=== PATIENT | male | born 1965 | race Caucasian/White ===

== ENCOUNTER 2018-06-21 16:47 | Emergency (ER) | payer OTHER ==
[~2018-06-21] VITALS: Ht 185.4 cm; Wt 99.8 kg
[2018-06-21 17:29] LABS: ABSOLUTE BASOPHILS 0.1 thou/uL (0.0-0.2); ABSOLUTE EOSINOPHILS 0.1 thou/uL (0.0-0.7); ABSOLUTE LYMPHOCYTES 2.2 thou/uL (0.8-5.3); ABSOLUTE MONOCYTES 0.9 thou/uL (0.0-1.2); BASOPHILS 0.9 %; EOSINOPHILS 0.8 %; HEMATOCRIT 42.6 % (42.0-52.0); HEMOGLOBIN 14.5 gm/dL (14.0-18.0); LYMPHOCYTES 19.3 %; MCH 30.2 pg (26.0-34.0); MCV 88.8 fL (80.0-100.0); MONOCYTES 8.4 %; MPV 8.1 fl. (7.2-11.1); NUCLEATED RBCS 0 /100WBC; PLATELET COUNT* 274 thou/uL (150-400); POLYS 70.6 %; RDW-CV 13.4 % (10.5-14.5); WBC 11.3 thou/uL (4.0-11.0)
[2018-06-21 17:42] LABS: APTT 27.4 Seconds (25.0-31.3); PROTIME 9.9 Seconds (9.20-11.50)
[2018-06-21 17:49] LABS: ANION GAP 6 mmol/L (7-16); BUN 14 mg/dL (7-18); CALCIUM 9.1 mg/dL (8.5-10.1); CHLORIDE 102 mmol/L (98-107); CO2 29 mmol/L (21-32); CREATININE 1.1 mg/dL (0.6-1.3); GLUCOSE 103 mg/dL (70-99); POTASSIUM 3.8 mmol/L (3.5-5.1); SODIUM 137 mmol/L (136-145)
[2018-06-21 17:53] LABS: ALKALINE PHOSPHATASE 90 U/L (46-116); LIPASE 155 U/L (73-393); SGOT 16 U/L (15-37); SGPT 28 U/L (30-65); TOTAL BILIRUBIN 0.4 mg/dL (<0.1-1.0); TROPONIN-I LEVEL <0.06 ng/mL (<0.06)
[2018-06-21] MEDS ORDERED: VENTOLIN HFA 1818 GM INH (19:05)
[2018-06-21 19:20] VITALS: BP 133/71
--- NOTE | 2018-06-22 10:28 | EKG ---
[place] [id number] ELECTROCARDIOGRAM REPORT Name: KITTY ERICKSON [id number] Admission: 06/21/18 Attend Phys: Discharge: 06/21/18 Date of : 69 Report #: [id number] THIS REPORT FOR: //name// [facility] ED Test Date: 2018-06-21 Test Time: 17:06:49 Pat Name: KITTY ERICKSON Department: Room: Gender: Manager Express: DONAL : 1965 Requested By: Dang Orozco Order Number: [id number] MD: Gino Avilez Measurements Intervals [place] Rate: 65 P: 43 [place]: 152 QRS: -12 QRSD: 101 T: 2 QT: 384 QTc: 400 Interpretive Statements 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
== END 2018-06-21 19:21 | disposition home or self-care (01) ==
LOC: M.ERS 16:47
PROVIDERS: Nurse Practitioner Family
DX: J98.11 Atelectasis (principal)